=== PATIENT | male | born 2000 | race Caucasian/White ===

== ENCOUNTER 2022-02-22 14:02 | Emergency (ER) | payer OTHER ==
[~2022-02-22] VITALS: Ht 172.7 cm; Wt 70.3 kg
== END 2022-02-22 22:50 | disposition home or self-care (01) ==
LOC: ER 14:02
DX: K52.89 Other specified noninfective gastroenteritis and colitis (principal)

== ENCOUNTER 2022-03-29 14:19 | Emergency (ER) | payer OTHER ==
[~2022-03-29] VITALS: Ht 172.7 cm; Wt 64.4 kg
== END 2022-03-29 18:34 | disposition home or self-care (01) ==
LOC: ER 14:19
DX: K62.5 Hemorrhage of anus and rectum (principal)

== ENCOUNTER → 2022-04-16 | Outpatient (CLI) | payer OTHER | END | disposition home or self-care (01) | LOC: SONOGRAMA 06:54 | DX: R10.13 Epigastric pain (principal) ==

== ENCOUNTER 2022-09-10 16:25 | Inpatient (IN) | payer OTHER ==
[~2022-09-10] VITALS: Ht 172.7 cm; Wt 61.7 kg
== END 2022-09-12 16:26 | disposition home or self-care (01) | DRG 343 ==
LOC: ER 16:25 → SURG 20:56 → SURH 21:19
PROVIDERS: ADMIT Specialist; ATTEND Specialist
PROC: BW21YZZ Computerized Tomography (CT Scan) of Abdomen and Pelvis using Other Contrast (ICD-10-PCS; 2022-09-10)
PROC: 0DTJ4ZZ Resection of Appendix, Percutaneous Endoscopic Approach (ICD-10-PCS; principal; 2022-09-11)
DX: K35.80 Unspecified acute appendicitis (principal); K38.1 Appendicular concretions